=== PATIENT | female | born 1985 | race African-American/Black ===

== ENCOUNTER 2016-10-30 08:01 | Emergency (ER) | payer MEDICAID ==
[~2016-10-30] VITALS: Ht 165.1 cm; Wt 66.0 kg
[~2016-10-30 08:01] MED LIST: ACCUPRIL5 MG; AMOXICILLIN500 MG PO; AMOXIL500 MG OR; BACTRIM DS1 TAB PO; BENADRYL25 M1 OR; CEPHALEXIN500 MG PO; CLARITIN10 M1 PO; CORTISPORIN OTI10 ML AS; DEPO-PROVER150 MG/M1 IM; DOXYCYC MONO100 M1 OR; FLAGYL500 MG PO; FLEXERIL PO; IBUPROFEN600 MG PO; IRON325 M1; LORTAB 5 OR; LORTAB 5/3255 MG; LORTAB 5/3255 MG PO; LORTAB 7.57.5 MG PO; LORTAB/VICOD5 MG/TAB PO; LORTAB5 PO; MACRODANTIN100 MG PO; MOTRIN800 MG PO; MUCINEX600 MG PO; NAPROSYN500 MG PO; NO HOME MEDS; NORCO1 TA1 PO; NORCO1 TA2 PO; PRENATAL FORMUL PO; PRENATAL1 TA1 PO; PROCARDIA10 MG PO; PYRIDIUM200 MG OR; ROBITUSSIN AC10 ML PO; TAM75CAP OR; TORADOL OR; ULTRAM50 M1 PO; ULTRAM50 MG OR; ULTRAM50 MG PO; VICOPROFEN OR; VISTARIL25 MG PO; VITA-NATAL OR; ZITHROMAX250 MG PO; ZOFRAN4 MG/TAB PO
[2016-10-30 08:58] LABS: HEMATOCRIT 42.9 % (37.0-47.0); HEMOGLOBIN 13.8 g/dl (12.0-16.0); IMMATURE GRANULOCYTES 0.2 % (0.0-1.0); MEAN CELL VOLUME 85.8 fL CALC (80.0-100.0); MEAN CORPUSCULAR HGB 27.6 pG CALC (26.0-32.0); MEAN CORPUSCULAR HGB CONC 32.2 g/L CALC (32.0-36.0); NEUT# 3.74 thou/uL (2.00-7.15); RED CELL DISTRI WIDTH 13.6 % (11.5-15.5)
[2016-10-30 09:02] LABS: URINE BILIRUBIN - DIPSTICK NEGATIVE (NEGATIVE); URINE BLOOD DIPSTICK NEGATIVE (NEGATIVE); URINE COLOR YELLOW; URINE GLUCOSE - DIPSTICK NEGATIVE (NEGATIVE); URINE KETONE NEGATIVE (NEGATIVE); URINE PH 6.5 (4.5-8.0); URINE PROTEIN - DIPSTICK TRACE mg/dL (NEG-TRACE); URINE UROBILINOGEN - DIPSTICK 0.2 E.U./dL (0.2)
[2016-10-30 09:04] LABS: URINE CLARITY SLIGHT CLOUDY; URINE LEUK ESTERASE SMALL (NEGATIVE); URINE NITRITE - DIPSTICK POSITIVE (Negative)
[2016-10-30 09:05] LABS: ALBUMIN 4.6 g/dL (3.2-5.0); ALKALINE PHOSPHATASE 58 u/l (38-126); ANION GAP 14 (6-22 (CALC)); BILIRUBIN, TOTAL 0.4 mg/dL (0.0-1.4); BUN 7 mg/dL (7-17); BUN/CREATININE RATIO 8 (12-20 (CALC)); CALCIUM 9.3 mg/dL (8.4-10.2); CARBON DIOXIDE 27 mmol/l (22-30); CHLORIDE 105 mmol/l (95-108); CREATININE 0.9 mg/dL (0.5-1.0); GFR > 60 ML/MIN (>=60 (CALC)); GFR FOR AFR.AMER. > 60 ML/MIN (>=60 (CALC)); GLUCOSE 81 mg/dL (65-105); LIPASE 164 u/l (23-300); POTASSIUM 4.2 mmol/l (3.5-5.1); SGOT/AST 19 u/l (14-36); SGPT/ALT 27 u/l (9-52); SODIUM 142 mmol/l (137-146); TOTAL PROTEIN 7.9 g/dL (6.3-8.2)
[2016-10-30 09:17] LABS: URINE SQUAMOUS EPITHELIAL CELL MODERATE EPI/hpf (0-FEW)
[2016-10-30 09:18] LABS: URINE BACTERIA MODERATE hpf
[2016-10-30] MEDS ORDERED: BACTRIM DS1 TAB PO (10:05)
[2016-10-30 10:09] VITALS: BP 123/62
== END 2016-10-30 10:18 | disposition home or self-care (01) | DRG 690 ==
LOC: ED 08:01
PROVIDERS: Emergency Medicine
DX: N39.0 Urinary tract infection, site not specified (principal); B96.20 Unspecified Escherichia coli [E. coli] as the cause of diseases classified elsewhere; R10.84 Generalized abdominal pain; R11.0 Nausea

== ENCOUNTER 2017-04-08 08:56 | Emergency (ER) | payer MEDICAID ==
[~2017-04-08] VITALS: Ht 165.1 cm; Wt 60.0 kg
[2017-04-08 10:10] LABS: INFLUENZA A NONE DETECTED (NONE DETECT)
[2017-04-08 10:11] LABS: INFLUENZA B NONE DETECTED (NONE DETECT)
[2017-04-08] MEDS ORDERED: ZITHROMAX250 MG PO (10:31)
[2017-04-08 11:00] VITALS: BP 111/71
== END 2017-04-08 11:06 | disposition home or self-care (01) | DRG 153 ==
LOC: ED 08:56
PROVIDERS: Emergency Medicine
DX: J02.9 Acute pharyngitis, unspecified (principal); B34.9 Viral infection, unspecified; R05 Cough; R09.81 Nasal congestion

== ENCOUNTER 2017-04-12 07:10 | Emergency (ER) | payer MEDICAID ==
[~2017-04-12] VITALS: Ht 165.1 cm; Wt 57.0 kg
[2017-04-12 07:57] LABS: INFLUENZA A NONE DETECTED (NONE DETECT); INFLUENZA B NONE DETECTED (NONE DETECT)
[2017-04-12] MEDS ORDERED: DOXYCYC MONO100 M1 PO (07:59)
[2017-04-12 08:09] VITALS: BP 109/67
== END 2017-04-12 08:09 | disposition home or self-care (01) | DRG 153 ==
LOC: ED 07:10
PROVIDERS: Family Medicine
DX: J06.9 Acute upper respiratory infection, unspecified (principal); F17.210 Nicotine dependence, cigarettes, uncomplicated

== ENCOUNTER 2018-04-24 11:41 | Emergency (ER) | payer MEDICAID ==
[~2018-04-24] VITALS: Ht 165.1 cm; Wt 70.0 kg
[~2018-04-24 11:41] MED LIST changes: +DOXYCYC MONO100 M1 PO
[2018-04-24] MEDS ORDERED: BACTRIM DS1 TAB PO (12:17)
[2018-04-24] MEDS ORDERED: KEFLEX500 M1 PO (12:17)
[2018-04-24 12:34] VITALS: BP 135/57
== END 2018-04-24 12:34 | disposition home or self-care (01) ==
LOC: ED 11:41
DX: T19.2XXA Foreign body in vulva and vagina, initial encounter (principal); F17.210 Nicotine dependence, cigarettes, uncomplicated; X58.XXXA Exposure to other specified factors, initial encounter

== ENCOUNTER 2018-10-16 17:44 | Emergency (ER) | payer SELFPAY ==
[~2018-10-16] VITALS: Ht 165.1 cm; Wt 67.8 kg
[~2018-10-16 17:44] MED LIST changes: +KEFLEX500 M1 PO
[2018-10-16 18:41] LABS: IMMATURE GRANULOCYTES 0.2 % (0.0-5.0); MEAN CELL VOLUME 87.4 fL CALC (80.0-100.0); MEAN CORPUSCULAR HGB 27.7 pG CALC (26.0-32.0); MEAN CORPUSCULAR HGB CONC 31.7 g/L CALC (32.0-36.0); NEUT# 2.21 thou/uL (2.00-7.15); RED BLOOD COUNT 4.22 mill/uL (4.20-5.60); RED CELL DISTRI WIDTH 14.3 % (11.5-15.5)
[2018-10-16 18:41] LABS: URINE BILIRUBIN - DIPSTICK NEGATIVE (NEGATIVE); URINE BLOOD DIPSTICK NEGATIVE (NEGATIVE); URINE COLOR YELLOW; URINE GLUCOSE - DIPSTICK NEGATIVE (NEGATIVE); URINE KETONE NEGATIVE (NEGATIVE); URINE LEUK ESTERASE NEGATIVE (NEGATIVE); URINE NITRITE - DIPSTICK NEGATIVE (Negative); URINE PH 6.5 (4.5-8.0); URINE PROTEIN - DIPSTICK TRACE mg/dL (NEG-TRACE); URINE SPECIFIC GRAVITY 1.025
[2018-10-16 18:50] LABS: HEMATOCRIT 36.9 % (37.0-47.0); HEMOGLOBIN 11.7 g/dl (12.0-16.0)
[2018-10-16 19:31] LABS: ALBUMIN 4.1 g/dL (3.2-5.0); ALKALINE PHOSPHATASE 55 u/l (38-126); ANION GAP 12 (6-22 (CALC)); BILIRUBIN, TOTAL 0.3 mg/dL (0.0-1.4); BUN 8 mg/dL (7-17); BUN/CREATININE RATIO 9 (12-20 (CALC)); CARBON DIOXIDE 28 mmol/l (22-30); CHLORIDE 105 mmol/l (95-108); CREATININE 0.9 mg/dL (0.5-1.0); GFR > 60 ML/MIN (>=60 (CALC)); GFR FOR AFR.AMER. > 60 ML/MIN (>=60 (CALC)); LIPASE 137 u/l (23-300); SGOT/AST 20 u/l (14-36); SODIUM 141 mmol/l (137-146); TOTAL PROTEIN 7.2 g/dL (6.3-8.2)
[2018-10-16] MEDS ORDERED: BACTROBAN TOP (21:24)
[2018-10-16] MEDS ORDERED: KEFLEX500 M1 PO (21:24)
[2018-10-16 21:30] VITALS: BP 112/62
== END 2018-10-16 21:40 | disposition home or self-care (01) | DRG 392 ==
LOC: ED 17:44
DX: R10.33 Periumbilical pain (principal); F17.210 Nicotine dependence, cigarettes, uncomplicated
CPT/HCPCS: Q9967

== ENCOUNTER 2018-12-01 09:37 | Emergency (ER) | payer SELFPAY ==
[~2018-12-01] VITALS: Ht 165.1 cm; Wt 75.0 kg
[~2018-12-01 09:37] MED LIST changes: +BACTROBAN TOP
[2018-12-01 11:21] LABS: HEMATOCRIT 37.8 % (37.0-47.0); HEMOGLOBIN 11.9 g/dl (12.0-16.0); IMMATURE GRANULOCYTES 0.2 % (0.0-5.0); MEAN CELL VOLUME 88.9 fL CALC (80.0-100.0); MEAN CORPUSCULAR HGB CONC 31.5 g/L CALC (32.0-36.0); NEUT# 3.15 thou/uL (2.00-7.15); RED BLOOD COUNT 4.25 mill/uL (4.20-5.60); RED CELL DISTRI WIDTH 13.8 % (11.5-15.5)
[2018-12-01 11:24] LABS: URINE BILIRUBIN - DIPSTICK NEGATIVE (NEGATIVE); URINE BLOOD DIPSTICK NEGATIVE (NEGATIVE); URINE COLOR YELLOW; URINE GLUCOSE - DIPSTICK NEGATIVE (NEGATIVE); URINE KETONE NEGATIVE (NEGATIVE); URINE LEUK ESTERASE NEGATIVE (NEGATIVE); URINE NITRITE - DIPSTICK NEGATIVE (Negative); URINE PROTEIN - DIPSTICK NEGATIVE (NEG-TRACE); URINE SPECIFIC GRAVITY 1.015; URINE UROBILINOGEN - DIPSTICK 0.2 E.U./dL (0.2)
[2018-12-01 11:29] LABS: ALKALINE PHOSPHATASE 49 u/l (38-126); ANION GAP 8 (6-22 (CALC)); BILIRUBIN, TOTAL 0.2 mg/dL (0.0-1.4); BUN 7 mg/dL (7-17); BUN/CREATININE RATIO 9 (12-20 (CALC)); CARBON DIOXIDE 27 mmol/l (22-30); CHLORIDE 108 mmol/l (95-108); CREATININE 0.8 mg/dL (0.5-1.0); GFR > 60 ML/MIN (>=60 (CALC)); GFR FOR AFR.AMER. > 60 ML/MIN (>=60 (CALC)); LIPASE 80 u/l (23-300); POTASSIUM 4.2 mmol/l (3.5-5.1); SGOT/AST 21 u/l (14-36); SODIUM 139 mmol/l (137-146); TOTAL PROTEIN 7.2 g/dL (6.3-8.2)
[2018-12-01 12:27] LABS: BARBITURATES NEGATIVE (NEGATIVE); COCAINE NEGATIVE (NEGATIVE); METHADONE NEGATIVE (NEGATIVE); OXCYCODONE NEGATIVE (NEGATIVE); TETRAHYDROCANNABIONOL POSITIVE (NEGATIVE); TRICYLIC ANTIDEPRESSANTS NEGATIVE (NEGATIVE)
[2018-12-01] MEDS ORDERED: DICYCLOMINE HYD10 MG PO (13:31)
[2018-12-01] MEDS ORDERED: ZOFRAN4 MG/TAB PO (13:31)
[2018-12-01] MEDS ORDERED: PROTONIX40 M2 PO (13:31)
[2018-12-01 13:52] VITALS: BP 115/64
== END 2018-12-01 13:58 | disposition home or self-care (01) | DRG 446 ==
LOC: ED 09:37
PROVIDERS: Emergency Medicine
DX: K80.50 Calculus of bile duct without cholangitis or cholecystitis without obstruction (principal); F17.200 Nicotine dependence, unspecified, uncomplicated
CPT/HCPCS: Q9967

== ENCOUNTER 2018-12-03 08:41 | Observation (INO) | payer SELFPAY ==
[~2018-12-03] VITALS: Ht 165.1 cm; Wt 67.3 kg
[~2018-12-03 08:41] MED LIST changes: +DICYCLOMINE HYD10 MG PO; +PROTONIX40 M2 PO
--- NOTE | 2018-12-03 08:50 | NUR ---
AMBULATORY TO ER ROOM 8, TO BED. BEDSIDE TRIAGE DONE
--- NOTE | 2018-12-03 09:02 | NUR ---
PT RESTING LT SIDE LYING HOLDING STOMACH , STATES THERE WAS BLOOD IN TOILET THIS AM AFTER URINATING ADN HAVING LOOSE BM
[2018-12-03 09:07] LABS: HEMATOCRIT 35.7 % (37.0-47.0); HEMOGLOBIN 11.3 g/dl (12.0-16.0); IMMATURE GRANULOCYTES 0.2 % (0.0-5.0); MEAN CELL VOLUME 87.9 fL CALC (80.0-100.0); MEAN CORPUSCULAR HGB 27.8 pG CALC (26.0-32.0); MEAN CORPUSCULAR HGB CONC 31.7 g/L CALC (32.0-36.0); NEUT# 3.28 thou/uL (2.00-7.15); RED BLOOD COUNT 4.06 mill/uL (4.20-5.60); RED CELL DISTRI WIDTH 13.8 % (11.5-15.5)
[2018-12-03 09:46] LABS: ALKALINE PHOSPHATASE 50 u/l (38-126); ANION GAP 8 (6-22 (CALC)); BUN 6 mg/dL (7-17); BUN/CREATININE RATIO 7 (12-20 (CALC)); CARBON DIOXIDE 28 mmol/l (22-30); CHLORIDE 108 mmol/l (95-108); CREATININE 0.8 mg/dL (0.5-1.0); GFR > 60 ML/MIN (>=60 (CALC)); GFR FOR AFR.AMER. > 60 ML/MIN (>=60 (CALC)); SGOT/AST 21 u/l (14-36); SODIUM 139 mmol/l (137-146); TOTAL PROTEIN 7.1 g/dL (6.3-8.2)
[2018-12-03 09:48] LABS: BILIRUBIN, TOTAL 0.4 mg/dL (0.0-1.4)
--- NOTE | 2018-12-03 10:05 | NUR ---
PT SITTING UP IN BED ON TELEPHONE TALKING TO SPOUSE IN NO DISTRESS
--- NOTE | 2018-12-03 11:05 | NUR ---
PT STATES SHE STILL HAS ABD LOGAN, UPDATED, NO NEW ORDERS
[2018-12-03 11:08] LABS: URINE BILIRUBIN - DIPSTICK NEGATIVE (NEGATIVE); URINE BLOOD DIPSTICK NEGATIVE (NEGATIVE); URINE COLOR YELLOW; URINE GLUCOSE - DIPSTICK NEGATIVE (NEGATIVE); URINE KETONE NEGATIVE (NEGATIVE); URINE LEUK ESTERASE NEGATIVE (NEGATIVE); URINE NITRITE - DIPSTICK NEGATIVE (Negative); URINE PROTEIN - DIPSTICK NEGATIVE (NEG-TRACE); URINE UROBILINOGEN - DIPSTICK 0.2 E.U./dL (0.2)
--- NOTE | 2018-12-03 12:05 | NUR ---
PT UPDATED ON POC AND AGREEABLE. DENIES N/V.PAIN2/10
--- NOTE | 2018-12-03 12:33 | NUR ---
PT LEFT VIA WC FOR HIDA SCAN IN NO ACUTE DISTRESS.
--- NOTE | 2018-12-03 13:28 | NUR ---
REPORT CALLED TO BREANNE MUKHERJEE RN. PT TO GO FROM SCAN TO MS
--- NOTE | 2018-12-03 14:26 | NUR ---
PT ARRIVED TO FLOOR VIA WC ACCOMPANIED BY VOLUNTEER. REPORTS SEVERE 10, ON SCALE OF 0-10, ABDOMINAL PAIN. REPORTS NAUSEA. DILAUDID AND ZOFRAN IV ADMINISTERED. PLAN OF CARE DISCUSSED. NPO STATUS REVIEWED. CALL LIGHT REVIEWED AND IN REACH. PT STATES UNDERSTANDING. PT. ALERT AND ORIENTED. AMBULATES W/ STEADY GAIT. LUNGS CLEAR, BOWEL SOUNDS PRESENT. NO OTHER COMPLAINTS.
[2018-12-03 14:40] VITALS: BP 112/75
--- NOTE | 2018-12-03 15:47 | NUR ---
DR. BEST IN TO SEE PT. REGULAR DIET ORDERED NOW, NPO AFTER MIDNIGHT.
--- NOTE | 2018-12-03 16:52 | NUR ---
PT. TALKING ON PHONE, LAUGHING. APPEARS COMFORTABLE.
--- NOTE | 2018-12-03 19:17 | NUR ---
PT RESTING IN BED NO SIGNS OF DISTRESS NOTED, RESP EVEN AND UNLABORED. PT ON CELLPHONE, DISCUSSED NEW IV SITE, PT AGREED. #20G INSERTED TO RFA PT TOLERATED WELL. INITAITED IV FLUIDS. DISCUSSED POC AND NPO AFTER MIDNIGHT, PT AGREED. PT C/O PAIN TO ABD BUT PREFERRED TO WAIT FOR PAIN MEDICATION UNTIL ZOFRAN IS AVAILABLE. ASSESSMENT COMPLETED, CALL LIGHT IN REACH,CONTINUE TO MONITOR.
[2018-12-03 19:29] VITALS: BP 101/62
--- NOTE | 2018-12-04 | NUR ---
PT MEDICATED FOR PAIN, DISCUSSED NPO STATUS, PT VERBALIZED UNDERSTANDING. WATER AND CUPS REMOVED AT THIS TIME. CALL LIGHT IN REACH,CONTINUE TO MONITOR.
[2018-12-04 03:22] VITALS: BP 102/72
--- NOTE | 2018-12-04 06:00 | NUR ---
PT RESTING IN BED WITH EYES CLOSED, EASILY AROUSED TO VERBAL STIMULI. PT C/O PAIN, MEDICATED WITH DILAUDID. CALL LIGHT IN REACH,CONTINUE TO MONITOR.
--- NOTE | 2018-12-04 08:15 | NUR ---
ASSESSMENT DONE. PT IS A&O X3. PT STATED PAIN IN ABD 12/08. MEDICATED PT WITH DILAUDID FOR PAIN. PT NPO. IVF INFUSING WELL. PT MOM IN ROOM. CALL LIGHT IN REACH.
[2018-12-04 08:18] VITALS: BP 100/60
--- NOTE | 2018-12-04 10:55 | NUR ---
DR. BEST AT BEDSIDE TO DISCUSS POC WITH PT AND MOM.
[2018-12-04 11:25] LABS: BARBITURATES NEGATIVE (NEGATIVE); COCAINE POSITIVE (NEGATIVE); METHADONE NEGATIVE (NEGATIVE); OXCYCODONE NEGATIVE (NEGATIVE); TETRAHYDROCANNABIONOL POSITIVE (NEGATIVE); TRICYLIC ANTIDEPRESSANTS NEGATIVE (NEGATIVE)
[2018-12-04 12:27] VITALS: BP 110/67
--- NOTE | 2018-12-04 13:27 | NUR ---
JEREL AND RAQUEL IN ROOM TO SPEAK WITH PT. TO NOTIFY HER THAT SHE CAN'T HAVE SURGERY TODAY DUE TO +DOA.
--- NOTE | 2018-12-04 15:12 | NUR ---
Discharge instructions given. Patient verbalizes understanding of same. Discharged in stable condition via Wheelchair to Home with family. All belongings sent with pt.
== END 2018-12-04 15:12 | disposition home or self-care (01) | DRG 446 ==
LOC: ED 08:41 → ED-I 11:52 → ED 12:05 → MS2 12:06
PROVIDERS: Family Medicine; ADMIT Surgery; ATTEND Surgery
DX: K82.8 Other specified diseases of gallbladder (principal); F14.90 Cocaine use, unspecified, uncomplicated; F17.200 Nicotine dependence, unspecified, uncomplicated
CPT/HCPCS: A9537; G0378; J2805

== ENCOUNTER 2019-02-01 08:23 | Emergency (ER) | payer MEDICAID ==
[~2019-02-01] VITALS: Ht 165.1 cm; Wt 65.0 kg
[2019-02-01 09:16] LABS: HEMATOCRIT 38.6 % (37.0-47.0); IMMATURE GRANULOCYTES 0.4 % (0.0-5.0); MEAN CELL VOLUME 89.4 fL CALC (80.0-100.0); MEAN CORPUSCULAR HGB 27.8 pG CALC (26.0-32.0); MEAN CORPUSCULAR HGB CONC 31.1 g/L CALC (32.0-36.0); NEUT# 2.98 thou/uL (2.00-7.15); RED BLOOD COUNT 4.32 mill/uL (4.20-5.60); RED CELL DISTRI WIDTH 13.4 % (11.5-15.5)
[2019-02-01 09:22] LABS: URINE BILIRUBIN - DIPSTICK NEGATIVE (NEGATIVE); URINE BLOOD DIPSTICK LARGE (NEGATIVE); URINE COLOR YELLOW; URINE GLUCOSE - DIPSTICK NEGATIVE (NEGATIVE); URINE KETONE NEGATIVE (NEGATIVE); URINE LEUK ESTERASE NEGATIVE (NEGATIVE); URINE NITRITE - DIPSTICK NEGATIVE (Negative); URINE PH 6.5 (4.5-8.0); URINE PROTEIN - DIPSTICK NEGATIVE (NEG-TRACE)
[2019-02-01 09:29] LABS: COCAINE POSITIVE (NEGATIVE); TETRAHYDROCANNABIONOL POSITIVE (NEGATIVE)
[2019-02-01 09:30] LABS: BARBITURATES NEGATIVE (NEGATIVE); METHADONE NEGATIVE (NEGATIVE); OXCYCODONE NEGATIVE (NEGATIVE); TRICYLIC ANTIDEPRESSANTS NEGATIVE (NEGATIVE); URINE RBC 0-2 RBC/hpf (0-5); URINE WBC 0-2 WBC/hpf (0-5)
[2019-02-01 09:54] LABS: ALBUMIN 4.1 g/dL (3.2-5.0); ALKALINE PHOSPHATASE 67 u/l (38-126); ANION GAP 10 (6-22 (CALC)); BILIRUBIN, TOTAL 0.3 mg/dL (0.0-1.4); BUN 7 mg/dL (7-17); BUN/CREATININE RATIO 8 (12-20 (CALC)); CARBON DIOXIDE 27 mmol/l (22-30); CHLORIDE 105 mmol/l (95-108); CREATININE 0.9 mg/dL (0.5-1.0); GFR > 60 ML/MIN (>=60 (CALC)); GFR FOR AFR.AMER. > 60 ML/MIN (>=60 (CALC)); POTASSIUM 4.4 mmol/l (3.5-5.1); SGOT/AST 22 u/l (14-36); SODIUM 138 mmol/l (137-146); TOTAL PROTEIN 7.5 g/dL (6.3-8.2)
[2019-02-01] MEDS ORDERED: ONDANSETRON4 MG PO (09:58)
[2019-02-01 10:07] VITALS: BP 114/77
== END 2019-02-01 10:07 | disposition home or self-care (01) ==
LOC: ED 08:23
PROVIDERS: Emergency Medicine
DX: R42 Dizziness and giddiness (principal); F11.90 Opioid use, unspecified, uncomplicated; F14.90 Cocaine use, unspecified, uncomplicated; R00.1 Bradycardia, unspecified; R11.0 Nausea; F17.210 Nicotine dependence, cigarettes, uncomplicated

== ENCOUNTER 2019-04-25 | Emergency (ER) | payer MEDICAID ==
[~2019-04-25] MED LIST changes: +ONDANSETRON4 MG PO
[2019-04-25 12:37] LABS: ALKALINE PHOSPHATASE 47 u/l (38-126); ANION GAP 14 (6-22 (CALC)); BUN 6 mg/dL (7-17); BUN/CREATININE RATIO 8 (12-20 (CALC)); CARBON DIOXIDE 25 mmol/l (22-30); CHLORIDE 104 mmol/l (95-108); CREATININE 0.8 mg/dL (0.5-1.0); GFR > 60 ML/MIN (>=60 (CALC)); GFR FOR AFR.AMER. > 60 ML/MIN (>=60 (CALC)); POTASSIUM 4.2 mmol/l (3.5-5.1); SGOT/AST 25 u/l (14-36); SODIUM 139 mmol/l (137-146); TOTAL PROTEIN 8.8 g/dL (6.3-8.2)
[2019-04-25 12:44] LABS: HEMATOCRIT 40.7 % (37.0-47.0); HEMOGLOBIN 12.7 g/dl (12.0-16.0); IMMATURE GRANULOCYTES 0.1 % (0.0-5.0); MEAN CELL VOLUME 87.7 fL CALC (80.0-100.0); MEAN CORPUSCULAR HGB 27.4 pG CALC (26.0-32.0); MEAN CORPUSCULAR HGB CONC 31.2 g/L CALC (32.0-36.0); NEUT# 3.67 thou/uL (2.00-7.15); RED BLOOD COUNT 4.64 mill/uL (4.20-5.60)
[2019-04-25 12:48] LABS: ALBUMIN 5.1 g/dL (3.2-5.0); BILIRUBIN, TOTAL 0.6 mg/dL (0.0-1.4)
[2019-04-25 13:20] LABS: URINE BILIRUBIN - DIPSTICK NEGATIVE (NEGATIVE); URINE BLOOD DIPSTICK LARGE (NEGATIVE); URINE CLARITY CLEAR; URINE COLOR YELLOW; URINE GLUCOSE - DIPSTICK NEGATIVE (NEGATIVE); URINE KETONE TRACE mg/dL (NEGATIVE); URINE LEUK ESTERASE NEGATIVE (NEGATIVE); URINE LEUK ESTERASE NEGATIVE (Negative); URINE NITRITE - DIPSTICK NEGATIVE (Negative); URINE PH 5.5 (4.5-8.0); URINE PROTEIN - DIPSTICK TRACE mg/dL (NEG-TRACE); URINE SPECIFIC GRAVITY >=1.030
[2019-04-25 13:38] LABS: URINE EPITHELIAL CELLS FEW EPI/hpf (0-FEW); URINE RBC TNTC RBC/hpf (0-5)
== END 2019-04-25 15:01 | disposition home or self-care (01) ==
DX: K56.1 Intussusception (principal); F17.210 Nicotine dependence, cigarettes, uncomplicated
CPT/HCPCS: Q9967

== ENCOUNTER 2019-05-22 | Emergency (ER) | payer MEDICAID ==
[2019-05-22 15:49] LABS: HEMATOCRIT 35.7 % (37.0-47.0); HEMOGLOBIN 11.4 g/dl (12.0-16.0); IMMATURE GRANULOCYTES 0.2 % (0.0-5.0); MEAN CELL VOLUME 87.7 fL CALC (80.0-100.0); MEAN CORPUSCULAR HGB CONC 31.9 g/L CALC (32.0-36.0); NEUT# 3.28 thou/uL (2.00-7.15); RED BLOOD COUNT 4.07 mill/uL (4.20-5.60); RED CELL DISTRI WIDTH 13.9 % (11.5-15.5)
[2019-05-22 15:58] LABS: ALBUMIN 4.5 g/dL (3.2-5.0); ALKALINE PHOSPHATASE 46 u/l (38-126); ANION GAP 8 (6-22 (CALC)); BILIRUBIN, TOTAL 0.5 mg/dL (0.0-1.4); BUN 4 mg/dL (7-17); BUN/CREATININE RATIO 5 (12-20 (CALC)); CARBON DIOXIDE 29 mmol/l (22-30); CHLORIDE 105 mmol/l (95-108); CREATININE 0.8 mg/dL (0.5-1.0); GFR > 60 ML/MIN (>=60 (CALC)); GFR FOR AFR.AMER. > 60 ML/MIN (>=60 (CALC)); LIPASE 133 u/l (23-300); POTASSIUM 3.7 mmol/l (3.5-5.1); SGOT/AST 23 u/l (14-36); SODIUM 139 mmol/l (137-146); TOTAL PROTEIN 7.6 g/dL (6.3-8.2)
[2019-05-22] MEDS ORDERED: ZOFRAN4 MG/TAB PO ×2 (19:07)
== END 2019-05-22 19:20 | disposition home or self-care (01) ==
PROVIDERS: Family Medicine
DX: R10.31 Right lower quadrant pain (principal); R10.11 Right upper quadrant pain; F17.200 Nicotine dependence, unspecified, uncomplicated
CPT/HCPCS: Q9967

== ENCOUNTER 2019-10-28 16:59 | Emergency (ER) | payer MEDICAID ==
[~2019-10-28] VITALS: Ht 165.1 cm; Wt 59.0 kg
[2019-10-28 19:14] LABS: HEMATOCRIT 34.7 % (37.0-47.0); HEMOGLOBIN 10.8 g/dl (12.0-16.0); IMMATURE GRANULOCYTES 0.2 % (0.0-5.0); MEAN CELL VOLUME 88.1 fL CALC (80.0-100.0); MEAN CORPUSCULAR HGB 27.4 pG CALC (26.0-32.0); MEAN CORPUSCULAR HGB CONC 31.1 g/dL CAL (32.0-36.0); NEUT# 2.27 thou/uL (2.00-7.15); RED BLOOD COUNT 3.94 mill/uL (4.20-5.60); RED CELL DISTRI WIDTH 13.2 % (11.5-15.5)
[2019-10-28 19:26] LABS: ALBUMIN 4.2 g/dL (3.2-5.0); ALKALINE PHOSPHATASE 61 u/l (38-126); ANION GAP 9 (6-22 (CALC)); BILIRUBIN, TOTAL 0.3 mg/dL (0.0-1.4); BUN 7 mg/dL (7-17); BUN/CREATININE RATIO 8 (12-20 (CALC)); CARBON DIOXIDE 26 mmol/l (22-30); CHLORIDE 104 mmol/l (95-108); CREATININE 0.8 mg/dL (0.5-1.0); GFR > 60 ML/MIN (>=60 (CALC)); GFR FOR AFR.AMER. > 60 ML/MIN (>=60 (CALC)); POTASSIUM 3.6 mmol/l (3.5-5.1); SGOT/AST 29 u/l (14-36); SODIUM 135 mmol/l (137-146); TOTAL PROTEIN 7.2 g/dL (6.3-8.2)
[2019-10-28 19:48] VITALS: BP 108/63
[2019-10-28] MEDS ORDERED: TORADOL PO ×2 (19:56)
== END 2019-10-28 20:26 | disposition home or self-care (01) ==
LOC: ED 16:59
PROVIDERS: Family Medicine
DX: R07.89 Other chest pain (principal); F17.200 Nicotine dependence, unspecified, uncomplicated; F14.90 Cocaine use, unspecified, uncomplicated; F15.90 Other stimulant use, unspecified, uncomplicated

== ENCOUNTER 2019-11-11 20:27 | Emergency (ER) | payer MEDICAID ==
[~2019-11-11] VITALS: Ht 165.1 cm; Wt 56.0 kg
[~2019-11-11 20:27] MED LIST changes: +TORADOL PO
[2019-11-11 21:05] LABS: URINE BLOOD DIPSTICK NEGATIVE (NEGATIVE); URINE COLOR YELLOW; URINE GLUCOSE - DIPSTICK NEGATIVE (NEGATIVE); URINE KETONE TRACE mg/dL (NEGATIVE); URINE LEUK ESTERASE NEGATIVE (NEGATIVE); URINE NITRITE - DIPSTICK NEGATIVE (Negative); URINE PROTEIN - DIPSTICK TRACE mg/dL (NEG-TRACE); URINE SPECIFIC GRAVITY >=1.030
[2019-11-11 21:06] LABS: URINE BILIRUBIN - DIPSTICK NEGATIVE (NEGATIVE)
[2019-11-11 21:07] LABS: HEMATOCRIT 33.4 % (37.0-47.0); HEMOGLOBIN 10.5 g/dl (12.0-16.0); IMMATURE GRANULOCYTES 0.2 % (0.0-5.0); MEAN CELL VOLUME 86.8 fL CALC (80.0-100.0); MEAN CORPUSCULAR HGB 27.3 pG CALC (26.0-32.0); MEAN CORPUSCULAR HGB CONC 31.4 g/dL CAL (32.0-36.0); NEUT# 2.07 thou/uL (2.00-7.15); RED BLOOD COUNT 3.85 mill/uL (4.20-5.60); RED CELL DISTRI WIDTH 13.1 % (11.5-15.5)
[2019-11-11 21:19] LABS: ALBUMIN 4.2 g/dL (3.2-5.0); ALKALINE PHOSPHATASE 45 u/l (38-126); AMYLASE 77 u/l (30-110); BILIRUBIN, TOTAL 0.4 mg/dL (0.0-1.4); BUN 5 mg/dL (7-17); BUN/CREATININE RATIO 7 (12-20 (CALC)); CARBON DIOXIDE 27 mmol/l (22-30); CHLORIDE 105 mmol/l (95-108); CREATININE 0.7 mg/dL (0.5-1.0); GFR > 60 ML/MIN (>=60 (CALC)); GFR FOR AFR.AMER. > 60 ML/MIN (>=60 (CALC)); LIPASE 212 u/l (23-300); SGOT/AST 27 u/l (14-36); SODIUM 135 mmol/l (137-146); TOTAL PROTEIN 6.9 g/dL (6.3-8.2)
[2019-11-11 21:21] LABS: ANION GAP 6 (6-22 (CALC)); POTASSIUM 2.8 mmol/l (3.5-5.1)
[2019-11-11] MEDS ORDERED: K-DUR/KLOR-CON20 MEQ PO (22:46)
[2019-11-11] MEDS ORDERED: LEVSIN/SL0.125 MG SL (22:46)
[2019-11-11 23:06] VITALS: BP 121/76
== END 2019-11-11 23:06 | disposition home or self-care (01) ==
LOC: ED 20:27
PROVIDERS: Family Medicine
DX: R10.84 Generalized abdominal pain (principal); E87.6 Hypokalemia; E05.90 Thyrotoxicosis, unspecified without thyrotoxic crisis or storm; F17.210 Nicotine dependence, cigarettes, uncomplicated
CPT/HCPCS: Q9967

== ENCOUNTER 2020-05-24 20:19 | Emergency (ER) | payer MEDICAID ==
[~2020-05-24] VITALS: Ht 165.1 cm; Wt 58.0 kg
[~2020-05-24 20:19] MED LIST changes: +K-DUR/KLOR-CON20 MEQ PO; +LEVSIN/SL0.125 MG SL
[2020-05-24 22:25] LABS: HEMATOCRIT 31.9 % (37.0-47.0); HEMOGLOBIN 10.1 g/dl (12.0-16.0); IMMATURE GRANULOCYTES 0.2 % (0.0-5.0); MEAN CELL VOLUME 90.9 fL CALC (80.0-100.0); MEAN CORPUSCULAR HGB 28.8 pG CALC (26.0-32.0); MEAN CORPUSCULAR HGB CONC 31.7 g/dL CAL (32.0-36.0); NEUT# 3.46 thou/uL (2.00-7.15); RED BLOOD COUNT 3.51 mill/uL (4.20-5.60); RED CELL DISTRI WIDTH 13.8 % (11.5-15.5)
[2020-05-24 22:25] LABS: URINE BILIRUBIN - DIPSTICK NEGATIVE (NEGATIVE); URINE BLOOD DIPSTICK NEGATIVE (NEGATIVE); URINE COLOR YELLOW; URINE GLUCOSE - DIPSTICK NEGATIVE (NEGATIVE); URINE KETONE NEGATIVE (NEGATIVE); URINE LEUK ESTERASE TRACE (NEGATIVE); URINE NITRITE - DIPSTICK NEGATIVE (Negative); URINE PROTEIN - DIPSTICK NEGATIVE (NEG-TRACE); URINE UROBILINOGEN - DIPSTICK 0.2 E.U./dL (0.2)
[2020-05-24 22:45] LABS: ALBUMIN 3.6 g/dL (3.2-5.0); ALKALINE PHOSPHATASE 43 u/l (38-126); AMYLASE 201 u/l (30-110); ANION GAP 7 (6-22 (CALC)); BILIRUBIN, TOTAL 0.4 mg/dL (0.0-1.4); BUN 6 mg/dL (7-17); BUN/CREATININE RATIO 7 (12-20 (CALC)); CARBON DIOXIDE 27 mmol/l (22-30); CHLORIDE 105 mmol/l (95-108); CREATININE 0.8 mg/dL (0.5-1.0); GFR > 60 ML/MIN (>=60 (CALC)); GFR FOR AFR.AMER. > 60 ML/MIN (>=60 (CALC)); LIPASE 206 u/l (23-300); POTASSIUM 3.7 mmol/l (3.5-5.1); SGOT/AST 21 u/l (14-36); SODIUM 135 mmol/l (137-146); TOTAL PROTEIN 6.2 g/dL (6.3-8.2)
[2020-05-24] MEDS ORDERED: PHENERGAN25 MG/TAB PO (23:31)
[2020-05-24 23:40] VITALS: BP 117/68
== END 2020-05-24 23:40 | disposition home or self-care (01) ==
LOC: ED 20:19
PROVIDERS: Family Medicine
DX: A08.4 Viral intestinal infection, unspecified (principal); E05.90 Thyrotoxicosis, unspecified without thyrotoxic crisis or storm; F17.200 Nicotine dependence, unspecified, uncomplicated

== ENCOUNTER 2020-05-27 22:26 | Emergency (ER) | payer MEDICAID ==
[~2020-05-27] VITALS: Ht 165.1 cm; Wt 55.0 kg
[~2020-05-27 22:26] MED LIST changes: +PHENERGAN25 MG/TAB PO
[2020-05-28 00:30] VITALS: BP 107/60
== END 2020-05-28 00:30 | disposition home or self-care (01) ==
LOC: ED 22:26
DX: Z20.822 Contact with and (suspected) exposure to COVID-19 (principal); E05.90 Thyrotoxicosis, unspecified without thyrotoxic crisis or storm; F17.200 Nicotine dependence, unspecified, uncomplicated

== ENCOUNTER 2020-08-18 11:06 | Emergency (ER) | payer MEDICAID ==
[~2020-08-18] VITALS: Ht 165.1 cm; Wt 65.0 kg
[2020-08-18 11:58] VITALS: BP 116/73
[2020-08-18 13:06] LABS: MEAN CELL VOLUME 89.6 fL CALC (80.0-100.0); MEAN CORPUSCULAR HGB 28.1 pG CALC (26.0-32.0); MEAN CORPUSCULAR HGB CONC 31.3 g/dL CAL (32.0-36.0); NEUT# 3.61 thou/uL (2.00-7.15); RED BLOOD COUNT 4.31 mill/uL (4.20-5.60); RED CELL DISTRI WIDTH 13.3 % (11.5-15.5)
[2020-08-18 13:09] LABS: HEMATOCRIT 38.6 % (37.0-47.0); HEMOGLOBIN 12.1 g/dl (12.0-16.0)
[2020-08-18 13:20] LABS: ALKALINE PHOSPHATASE 49 u/l (38-126); AMYLASE 133 u/l (30-110); ANION GAP 10 (6-22 (CALC)); BILIRUBIN, TOTAL 0.5 mg/dL (0.0-1.4); BUN 5 mg/dL (7-17); BUN/CREATININE RATIO 6 (12-20 (CALC)); CARBON DIOXIDE 28 mmol/l (22-30); CHLORIDE 105 mmol/l (95-108); CREATININE 0.8 mg/dL (0.5-1.0); GFR > 60 ML/MIN (>=60 (CALC)); GFR FOR AFR.AMER. > 60 ML/MIN (>=60 (CALC)); LIPASE 334 u/l (23-300); POTASSIUM 4.3 mmol/l (3.5-5.1); SGOT/AST 34 u/l (14-36); SODIUM 138 mmol/l (137-146)
[2020-08-18 13:28] LABS: ALBUMIN 4.5 g/dL (3.2-5.0); TOTAL PROTEIN 8.1 g/dL (6.3-8.2)
== END 2020-08-18 13:44 | disposition left against medical advice (07) ==
LOC: ED 11:06
PROVIDERS: Emergency Medicine
DX: R10.2 Pelvic and perineal pain (principal); E05.90 Thyrotoxicosis, unspecified without thyrotoxic crisis or storm; F17.200 Nicotine dependence, unspecified, uncomplicated; Z91.19 Patient's noncompliance with other medical treatment and regimen

== ENCOUNTER 2020-09-09 20:53 | Emergency (ER) | payer MEDICAID ==
[~2020-09-09] VITALS: Ht 165.1 cm; Wt 55.0 kg
[2020-09-09 23:08] LABS: HEMOGLOBIN 10.4 g/dl (12.0-16.0); IMMATURE GRANULOCYTES 0.2 % (0.0-5.0); MEAN CELL VOLUME 88.7 fL CALC (80.0-100.0); MEAN CORPUSCULAR HGB CONC 31.5 g/dL CAL (32.0-36.0); NEUT# 2.46 thou/uL (2.00-7.15); RED BLOOD COUNT 3.72 mill/uL (4.20-5.60); RED CELL DISTRI WIDTH 13.4 % (11.5-15.5)
[2020-09-09 23:23] LABS: ALBUMIN 3.8 g/dL (3.2-5.0); ALKALINE PHOSPHATASE 40 u/l (38-126); AMYLASE 125 u/l (30-110); ANION GAP 9 (6-22 (CALC)); BILIRUBIN, TOTAL 0.3 mg/dL (0.0-1.4); BUN 10 mg/dL (7-17); BUN/CREATININE RATIO 14 (12-20 (CALC)); CARBON DIOXIDE 25 mmol/l (22-30); CHLORIDE 106 mmol/l (95-108); CREATININE 0.7 mg/dL (0.5-1.0); GFR > 60 ML/MIN (>=60 (CALC)); GFR FOR AFR.AMER. > 60 ML/MIN (>=60 (CALC)); LIPASE 85 u/l (23-300); POTASSIUM 4.1 mmol/l (3.5-5.1); SGOT/AST 29 u/l (14-36); SODIUM 135 mmol/l (137-146); TOTAL PROTEIN 6.8 g/dL (6.3-8.2)
[2020-09-10 00:56] LABS: URINE BILIRUBIN - DIPSTICK NEGATIVE (NEGATIVE); URINE COLOR YELLOW; URINE GLUCOSE - DIPSTICK NEGATIVE (NEGATIVE); URINE KETONE Negative (NEGATIVE); URINE SPECIFIC GRAVITY 1.015
[2020-09-10 00:57] LABS: URINE BLOOD DIPSTICK NEGATIVE (NEGATIVE); URINE LEUK ESTERASE NEGATIVE (NEGATIVE); URINE NITRITE - DIPSTICK NEGATIVE (Negative); URINE PROTEIN - DIPSTICK NEGATIVE (NEG-TRACE); URINE UROBILINOGEN - DIPSTICK 0.2 E.U./dL (0.2)
[2020-09-10 03:20] VITALS: BP 100/56
== END 2020-09-10 03:20 | disposition home or self-care (01) ==
LOC: ED 20:53
PROVIDERS: Emergency Medicine
DX: R10.84 Generalized abdominal pain (principal); R11.2 Nausea with vomiting, unspecified; E05.90 Thyrotoxicosis, unspecified without thyrotoxic crisis or storm; F17.210 Nicotine dependence, cigarettes, uncomplicated

== ENCOUNTER 2020-10-14 10:52 | Emergency (ER) | payer MEDICAID ==
[~2020-10-14] VITALS: Ht 165.1 cm; Wt 65.0 kg
[2020-10-14 11:43] LABS: HEMATOCRIT 38.1 % (37.0-47.0); HEMOGLOBIN 12.1 g/dl (12.0-16.0); IMMATURE GRANULOCYTES 0.6 % (0.0-5.0); MEAN CORPUSCULAR HGB 28.3 pG CALC (26.0-32.0); MEAN CORPUSCULAR HGB CONC 31.8 g/dL CAL (32.0-36.0); NEUT# 3.12 thou/uL (2.00-7.15); RED BLOOD COUNT 4.28 mill/uL (4.20-5.60); RED CELL DISTRI WIDTH 13.4 % (11.5-15.5)
[2020-10-14 11:44] LABS: URINE BILIRUBIN - DIPSTICK NEGATIVE (NEGATIVE); URINE BLOOD DIPSTICK LARGE (NEGATIVE); URINE CLARITY TURBID; URINE GLUCOSE - DIPSTICK 100 mg/dL (NEGATIVE); URINE KETONE 15 mg/dL (NEGATIVE); URINE LEUK ESTERASE MODERATE (Negative); URINE NITRITE - DIPSTICK POSITIVE (Negative); URINE PH 6.5 (4.5-8.0); URINE PROTEIN - DIPSTICK >=300 mg/dL (NEG-TRACE); URINE SPECIFIC GRAVITY 1.025
[2020-10-14 11:46] LABS: URINE COLOR BLOODY; URINE RBC TNTC RBC/hpf (0-5); URINE SQUAMOUS EPITHELIAL CELL FEW EPI/hpf (0-FEW)
[2020-10-14 11:57] LABS: ALBUMIN 4.4 g/dL (3.2-5.0); ALKALINE PHOSPHATASE 41 u/l (38-126); ANION GAP 11 (6-22 (CALC)); BILIRUBIN, TOTAL 0.4 mg/dL (0.0-1.4); BUN 7 mg/dL (7-17); BUN/CREATININE RATIO 8 (12-20 (CALC)); CARBON DIOXIDE 26 mmol/l (22-30); CHLORIDE 103 mmol/l (95-108); CREATININE 0.8 mg/dL (0.5-1.0); GFR > 60 ML/MIN (>=60 (CALC)); GFR FOR AFR.AMER. > 60 ML/MIN (>=60 (CALC)); POTASSIUM 3.8 mmol/l (3.5-5.1); SGOT/AST 27 u/l (14-36); SODIUM 137 mmol/l (137-146); TOTAL PROTEIN 8.1 g/dL (6.3-8.2)
[2020-10-14] MEDS ORDERED: ULTRAM50 M1 PO (12:38)
[2020-10-14] MEDS ORDERED: KEFLEX500 MG PO (12:38)
[2020-10-14 13:00] VITALS: BP 110/66
== END 2020-10-14 13:00 | disposition home or self-care (01) ==
LOC: ED 10:52
PROVIDERS: Emergency Medicine
DX: N39.0 Urinary tract infection, site not specified (principal); N83.209 Unspecified ovarian cyst, unspecified side; E05.90 Thyrotoxicosis, unspecified without thyrotoxic crisis or storm; F17.210 Nicotine dependence, cigarettes, uncomplicated

== ENCOUNTER 2020-11-04 16:37 | Emergency (ER) | payer MEDICAID ==
[~2020-11-04 16:37] MED LIST changes: +KEFLEX500 MG PO
[2020-11-04 17:32] LABS: URINE BILIRUBIN - DIPSTICK NEGATIVE (NEGATIVE); URINE BLOOD DIPSTICK NEGATIVE (NEGATIVE); URINE COLOR YELLOW; URINE GLUCOSE - DIPSTICK NEGATIVE (NEGATIVE); URINE KETONE NEGATIVE (NEGATIVE); URINE LEUK ESTERASE NEGATIVE (NEGATIVE); URINE NITRITE - DIPSTICK NEGATIVE (Negative); URINE PROTEIN - DIPSTICK NEGATIVE (NEG-TRACE); URINE UROBILINOGEN - DIPSTICK 0.2 E.U./dL (0.2)
[2020-11-04 17:53] LABS: HEMATOCRIT 32.4 % (37.0-47.0); HEMOGLOBIN 10.4 g/dl (12.0-16.0); IMMATURE GRANULOCYTES 0.1 % (0.0-5.0); MEAN CELL VOLUME 91.3 fL CALC (80.0-100.0); MEAN CORPUSCULAR HGB 29.3 pG CALC (26.0-32.0); MEAN CORPUSCULAR HGB CONC 32.1 g/dL CAL (32.0-36.0); NEUT# 6.51 thou/uL (2.00-7.15); RED BLOOD COUNT 3.55 mill/uL (4.20-5.60); RED CELL DISTRI WIDTH 13.2 % (11.5-15.5)
[2020-11-04 18:00] LABS: ALKALINE PHOSPHATASE 40 u/l (38-126); ANION GAP 12 (6-22 (CALC)); BUN 9 mg/dL (7-17); BUN/CREATININE RATIO 12 (12-20 (CALC)); CARBON DIOXIDE 23 mmol/l (22-30); CHLORIDE 105 mmol/l (95-108); CREATININE 0.8 mg/dL (0.5-1.0); GFR > 60 ML/MIN (>=60 (CALC)); GFR FOR AFR.AMER. > 60 ML/MIN (>=60 (CALC)); LIPASE 122 u/l (23-300); POTASSIUM 3.5 mmol/l (3.5-5.1); SGOT/AST 26 u/l (14-36); SODIUM 136 mmol/l (137-146); TOTAL PROTEIN 7.1 g/dL (6.3-8.2)
[2020-11-04 18:03] LABS: BILIRUBIN, TOTAL 0.2 mg/dL (0.0-1.4)
[2020-11-04] MEDS ORDERED: ONDANSETRON4 MG PO (18:22)
[2020-11-04] MEDS ORDERED: HYOSCYAMINE0.125 M3 PO (18:22)
[2020-11-04 18:25] VITALS: BP 101/58
[2021-02-12] MEDS ORDERED: BACTRIM DS1 TAB PO (12:14)
[2021-02-28] MEDS ORDERED: DEPO-PROVER150 MG/ML IM (08:33)
== END 2020-11-04 18:35 | disposition home or self-care (01) ==
LOC: ED 16:37
PROVIDERS: Family Medicine
DX: R51.9 Headache, unspecified (principal); R10.84 Generalized abdominal pain; N83.202 Unspecified ovarian cyst, left side; N83.201 Unspecified ovarian cyst, right side; E05.90 Thyrotoxicosis, unspecified without thyrotoxic crisis or storm; F17.210 Nicotine dependence, cigarettes, uncomplicated

== ENCOUNTER 2021-01-10 21:22 | Emergency (ER) | payer MEDICAID ==
[~2021-01-10] VITALS: Ht 165.1 cm; Wt 55.0 kg
[~2021-01-10 21:22] MED LIST changes: +HYOSCYAMINE0.125 M3 PO
[2021-01-10 21:30] VITALS: BP 122/68
[2021-01-10] MEDS ORDERED: AMOXICILLIN875 MG PO (22:31)
== END 2021-01-10 22:44 | disposition home or self-care (01) ==
LOC: ED 21:22
DX: J02.9 Acute pharyngitis, unspecified (principal); E05.90 Thyrotoxicosis, unspecified without thyrotoxic crisis or storm; F17.210 Nicotine dependence, cigarettes, uncomplicated; Z20.818 Contact with and (suspected) exposure to other bacterial communicable diseases; Z20.822 Contact with and (suspected) exposure to COVID-19

== ENCOUNTER 2021-03-05 07:58 | Day surgery (SDC) | payer MEDICAID ==
[~2021-03-05 07:58] MED LIST changes: +AMOXICILLIN875 MG PO; +DEPO-PROVER150 MG/ML IM
[2021-03-05] MEDS ORDERED: LORTAB5 PO (11:15)
[2021-03-05 12:30] VITALS: BP 151/99
[2021-03-05] MEDS ORDERED: LORTAB 5/3255 MG PO (13:35)
== END 2021-03-05 13:15 | disposition home or self-care (01) ==
LOC: ORM 07:58
PROVIDERS: ATTEND Surgery
DX: L72.9 Follicular cyst of the skin and subcutaneous tissue, unspecified (principal); L90.5 Scar conditions and fibrosis of skin
CPT/HCPCS: J0131

== ENCOUNTER 2021-04-02 12:12 | Emergency (ER) | payer MEDICAID ==
[~2021-04-02] VITALS: Ht 165.1 cm; Wt 60.0 kg
[2021-04-02 14:22] LABS: HEMATOCRIT 31.7 % (37.0-47.0); MEAN CELL VOLUME 90.1 fL CALC (80.0-100.0); MEAN CORPUSCULAR HGB 28.4 pG CALC (26.0-32.0); MEAN CORPUSCULAR HGB CONC 31.5 g/dL CAL (32.0-36.0); NEUT# 3.96 thou/uL (2.00-7.15); RED BLOOD COUNT 3.52 mill/uL (4.20-5.60); RED CELL DISTRI WIDTH 14.2 % (11.5-15.5)
[2021-04-02 14:44] LABS: ALKALINE PHOSPHATASE 37 u/l (38-126); ANION GAP 7 (6-22 (CALC)); BUN 5 mg/dL (7-17); BUN/CREATININE RATIO 6 (12-20 (CALC)); CARBON DIOXIDE 27 mmol/l (22-30); CHLORIDE 108 mmol/l (95-108); CREATININE 0.8 mg/dL (0.5-1.0); GFR > 60 ML/MIN (>=60 (CALC)); GFR FOR AFR.AMER. > 60 ML/MIN (>=60 (CALC)); POTASSIUM 3.4 mmol/l (3.5-5.1); SODIUM 138 mmol/l (137-146); TOTAL PROTEIN 7.2 g/dL (6.3-8.2)
[2021-04-02 15:05] LABS: BILIRUBIN, TOTAL 0.7 mg/dL (0.0-1.4); SGOT/AST 53 u/l (14-36)
[2021-04-02] MEDS ORDERED: ZPAK PO (15:09)
[2021-04-02 15:12] VITALS: BP 129/71
== END 2021-04-02 15:12 | disposition home or self-care (01) ==
LOC: ED 12:12
PROVIDERS: Emergency Medicine
DX: U07.1 COVID-19 (principal); F17.200 Nicotine dependence, unspecified, uncomplicated

== ENCOUNTER 2021-04-11 08:45 | Emergency (ER) | payer MEDICAID ==
[~2021-04-11 08:45] MED LIST changes: +ZPAK PO
== END 2021-04-11 09:45 | disposition left against medical advice (07) | DRG 951 ==
LOC: ED 08:45 → LWOBS 09:44
DX: Z53.21 Procedure and treatment not carried out due to patient leaving prior to being seen by health care provider (principal)

== ENCOUNTER 2021-06-05 20:09 | Emergency (ER) | payer MEDICAID | END 2021-06-05 21:20 | disposition left against medical advice (07) | DRG 951 | LOC: ED 20:09 → LWOBS 21:20 | DX: Z53.21 Procedure and treatment not carried out due to patient leaving prior to being seen by health care provider (principal) ==

== ENCOUNTER 2021-06-23 01:47 | Emergency (ER) | payer MEDICAID ==
[~2021-06-23] VITALS: Ht 165.1 cm; Wt 55.0 kg
[2021-06-23 02:10] VITALS: BP 103/65
[2021-06-23 02:30] VITALS: BP 111/66
[2021-06-23 02:31] LABS: URINE BILIRUBIN - DIPSTICK NEGATIVE (NEGATIVE); URINE BLOOD DIPSTICK NEGATIVE (NEGATIVE); URINE COLOR YELLOW; URINE GLUCOSE - DIPSTICK NEGATIVE (NEGATIVE); URINE KETONE NEGATIVE (NEGATIVE); URINE LEUK ESTERASE NEGATIVE (NEGATIVE); URINE PROTEIN - DIPSTICK TRACE mg/dL (NEG-TRACE); URINE SPECIFIC GRAVITY >=1.030; URINE UROBILINOGEN - DIPSTICK 0.2 E.U./dL (0.2)
[2021-06-23 02:31] LABS: HEMATOCRIT 37.2 % (37.0-47.0); IMMATURE GRANULOCYTES 0.1 % (0.0-5.0); MEAN CORPUSCULAR HGB 29.3 pG CALC (26.0-32.0); MEAN CORPUSCULAR HGB CONC 32.3 g/dL CAL (32.0-36.0); NEUT# 4.43 thou/uL (2.00-7.15); RED BLOOD COUNT 4.09 mill/uL (4.20-5.60); RED CELL DISTRI WIDTH 13.4 % (11.5-15.5)
[2021-06-23 02:36] LABS: URINE NITRITE - DIPSTICK NEGATIVE (Negative)
[2021-06-23 02:54] LABS: ALBUMIN 4.6 g/dL (3.2-5.0); AMYLASE 129 u/l (30-110); ANION GAP 8 (6-22 (CALC)); BUN 10 mg/dL (7-17); BUN/CREATININE RATIO 12 (12-20 (CALC)); CARBON DIOXIDE 28 mmol/l (22-30); CHLORIDE 106 mmol/l (95-108); CREATININE 0.9 mg/dL (0.5-1.0); GFR > 60 ML/MIN (>=60 (CALC)); GFR FOR AFR.AMER. > 60 ML/MIN (>=60 (CALC)); LIPASE 237 u/l (23-300); POTASSIUM 3.9 mmol/l (3.5-5.1); SGOT/AST 28 u/l (14-36); SODIUM 138 mmol/l (137-146); TOTAL PROTEIN 7.7 g/dL (6.3-8.2)
[2021-06-23 03:00] VITALS: BP 104/73
[2021-06-23 03:03] LABS: ALKALINE PHOSPHATASE 67 u/l (38-126); BILIRUBIN, TOTAL 0.3 mg/dL (0.0-1.4)
[2021-06-23 03:24] LABS: TSH, 3RD GENERATION 1.28 uIU/mL (0.47 - 4.68)
[2021-06-23 03:30] VITALS: BP 113/79
[2021-06-23 04:00] VITALS: BP 104/76
[2021-06-23] MEDS ORDERED: DICYCLOMINE10 MG PO (05:30)
[2021-06-23 05:39] VITALS: BP 104/76
== END 2021-06-23 05:40 | disposition home or self-care (01) ==
LOC: ED 01:47
PROVIDERS: Family Medicine
DX: R10.84 Generalized abdominal pain (principal); F17.200 Nicotine dependence, unspecified, uncomplicated
CPT/HCPCS: Q9967

== ENCOUNTER 2021-07-18 17:54 | Emergency (ER) | payer MEDICAID ==
[~2021-07-18 17:54] MED LIST changes: +DICYCLOMINE10 MG PO
== END 2021-07-18 19:00 | disposition left against medical advice (07) | DRG 951 ==
LOC: ED 17:54 → LWOBS 19:00
DX: Z53.21 Procedure and treatment not carried out due to patient leaving prior to being seen by health care provider (principal)

== ENCOUNTER 2021-08-13 10:14 | Emergency (ER) | payer MEDICAID ==
[2021-08-13] VITALS (8 sets, daily range): BP systolic 80–112; BP diastolic 31–72
[~2021-08-13] VITALS: Ht 165.1 cm; Wt 55.7 kg
[2021-08-13 10:41] LABS: URINE BILIRUBIN - DIPSTICK NEGATIVE (NEGATIVE); URINE BLOOD DIPSTICK NEGATIVE (NEGATIVE); URINE COLOR YELLOW; URINE GLUCOSE - DIPSTICK NEGATIVE (NEGATIVE); URINE KETONE NEGATIVE (NEGATIVE); URINE LEUK ESTERASE NEGATIVE (NEGATIVE); URINE NITRITE - DIPSTICK NEGATIVE (Negative); URINE PROTEIN - DIPSTICK NEGATIVE (NEG-TRACE); URINE SPECIFIC GRAVITY 1.015; URINE UROBILINOGEN - DIPSTICK 0.2 E.U./dL (0.2)
[2021-08-13 11:02] LABS: HEMATOCRIT 35.1 % (37.0-47.0); HEMOGLOBIN 11.1 g/dl (12.0-16.0); MEAN CELL VOLUME 92.4 fL CALC (80.0-100.0); MEAN CORPUSCULAR HGB 29.2 pG CALC (26.0-32.0); MEAN CORPUSCULAR HGB CONC 31.6 g/dL CAL (32.0-36.0); NEUT# 2.64 thou/uL (2.00-7.15); RED BLOOD COUNT 3.8 mill/uL (4.20-5.60); RED CELL DISTRI WIDTH 12.9 % (11.5-15.5)
[2021-08-13 11:16] LABS: ALKALINE PHOSPHATASE 51 u/l (38-126); ANION GAP 9 (6-22 (CALC)); BUN 6 mg/dL (7-17); BUN/CREATININE RATIO 8 (12-20 (CALC)); CARBON DIOXIDE 24 mmol/l (22-30); CHLORIDE 109 mmol/l (95-108); CREATININE 0.7 mg/dL (0.5-1.0); GFR > 60 ML/MIN (>=60 (CALC)); GFR FOR AFR.AMER. > 60 ML/MIN (>=60 (CALC)); LIPASE 122 u/l (23-300); POTASSIUM 3.7 mmol/l (3.5-5.1); SGOT/AST 29 u/l (14-36); SODIUM 138 mmol/l (137-146)
[2021-08-13 11:18] LABS: ALBUMIN 3.5 g/dL (3.2-5.0); TOTAL PROTEIN 6.1 g/dL (6.3-8.2)
[2021-08-13] MEDS ORDERED: METRONIDAZOLE500 MG PO (11:53)
[2021-08-13] MEDS ORDERED: DIFLUCAN150 MG PO (11:53)
== END 2021-08-13 12:10 | disposition home or self-care (01) ==
LOC: ED 10:14
PROVIDERS: Family Medicine
DX: N76.0 Acute vaginitis (principal); B37.3 Candidiasis of vulva and vagina; D25.1 Intramural leiomyoma of uterus; F17.210 Nicotine dependence, cigarettes, uncomplicated

== ENCOUNTER 2021-09-11 17:14 | Emergency (ER) | payer MEDICAID ==
[~2021-09-11] VITALS: Ht 165.1 cm; Wt 59.3 kg
[~2021-09-11 17:14] MED LIST changes: +DIFLUCAN150 MG PO; +METRONIDAZOLE500 MG PO
[2021-09-11 17:58] VITALS: BP 108/67
[2021-09-11 18:00] VITALS: BP 92/57
[2021-09-11 18:00] LABS: HEMATOCRIT 37.2 % (37.0-47.0); HEMOGLOBIN 11.8 g/dl (12.0-16.0); IMMATURE GRANULOCYTES 0.2 % (0.0-5.0); MEAN CELL VOLUME 93.7 fL CALC (80.0-100.0); MEAN CORPUSCULAR HGB 29.7 pG CALC (26.0-32.0); MEAN CORPUSCULAR HGB CONC 31.7 g/dL CAL (32.0-36.0); NEUT# 3.46 thou/uL (2.00-7.15); RED BLOOD COUNT 3.97 mill/uL (4.20-5.60); RED CELL DISTRI WIDTH 12.9 % (11.5-15.5)
[2021-09-11 18:04] LABS: INTERNATIONAL NORMALIZED RATIO 0.9 RATIO (0.7-1.3); PROTHROMBIN TIME 9.9 SECONDS (9.0-12.5)
[2021-09-11 18:06] LABS: ALBUMIN 2.8 g/dL (3.2-5.0); ALKALINE PHOSPHATASE 42 u/l (38-126); ANION GAP 5 (6-22 (CALC)); BUN 3 mg/dL (7-17); BUN/CREATININE RATIO 3 (12-20 (CALC)); CARBON DIOXIDE 25 mmol/l (22-30); CHLORIDE 110 mmol/l (95-108); CREATININE 0.9 mg/dL (0.5-1.0); GFR FOR AFR.AMER. > 60 ML/MIN (>=60 (CALC)); GFR OTHER RACES > 60 ML/MIN (>=60 (CALC)); POTASSIUM 3.5 mmol/l (3.5-5.1); SGOT/AST 30 u/l (14-36); SODIUM 137 mmol/l (137-146); TOTAL PROTEIN 5.1 g/dL (6.3-8.2)
[2021-09-11 18:13] LABS: BILIRUBIN, TOTAL 0.2 mg/dL (0.0-1.4)
[2021-09-11 18:15] VITALS: BP 93/60
[2021-09-11 18:31] VITALS: BP 99/66
[2021-09-11 18:44] VITALS: BP 133/81
[2021-09-11 19:08] VITALS: BP 102/67
== END 2021-09-11 19:08 | disposition short-term general hospital (02) ==
LOC: ED 17:14
PROVIDERS: Family Medicine
DX: I63.9 Cerebral infarction, unspecified (principal)
CPT/HCPCS: J3101; Q9967

== ENCOUNTER 2021-09-30 11:12 | Emergency (ER) | payer OTHER, MEDICAID ==
[~2021-09-30] VITALS: Ht 165.1 cm; Wt 58.0 kg
[2021-09-30 11:26] VITALS: BP 108/61
[2021-09-30 11:30] VITALS: BP 95/60
[2021-09-30 11:35] VITALS: BP 95/60
[2021-09-30] MEDS ORDERED: ATORVASTATIN CA40 MG PO (12:04)
[2021-09-30 12:12] LABS: URINE BILIRUBIN - DIPSTICK NEGATIVE (NEGATIVE); URINE BLOOD DIPSTICK NEGATIVE (NEGATIVE); URINE COLOR YELLOW; URINE GLUCOSE - DIPSTICK NEGATIVE (NEGATIVE); URINE KETONE NEGATIVE (NEGATIVE); URINE LEUK ESTERASE NEGATIVE (NEGATIVE); URINE PROTEIN - DIPSTICK NEGATIVE (NEG-TRACE); URINE SPECIFIC GRAVITY 1.025; URINE UROBILINOGEN - DIPSTICK 0.2 E.U./dL (0.2)
[2021-09-30 12:15] LABS: URINE NITRITE - DIPSTICK NEGATIVE (Negative)
[2021-09-30] MEDS ORDERED: NAPROXEN500 MG PO (14:14)
[2021-09-30] MEDS ORDERED: CYCLOBENZAPRINE10 MG PO (14:14)
== END 2021-09-30 14:15 | disposition home or self-care (01) | DRG 552 ==
LOC: ED 11:12
PROVIDERS: Emergency Medicine
DX: S33.5XXA Sprain of ligaments of lumbar spine, initial encounter (principal); F17.210 Nicotine dependence, cigarettes, uncomplicated; V49.40XA Driver injured in collision with unspecified motor vehicles in traffic accident, initial encounter; Z86.73 Personal history of transient ischemic attack (TIA), and cerebral infarction without residual deficits

== ENCOUNTER 2021-10-26 10:15 | Emergency (ER) | payer MEDICAID ==
[~2021-10-26] VITALS: Ht 165.1 cm; Wt 57.0 kg
[~2021-10-26 10:15] MED LIST changes: +ATORVASTATIN CA40 MG PO; +CYCLOBENZAPRINE10 MG PO; +NAPROXEN500 MG PO
[2021-10-26 11:04] LABS: HEMATOCRIT 36.5 % (37.0-47.0); HEMOGLOBIN 11.4 g/dl (12.0-16.0); IMMATURE GRANULOCYTES 0.2 % (0.0-5.0); MEAN CELL VOLUME 93.1 fL CALC (80.0-100.0); MEAN CORPUSCULAR HGB 29.1 pG CALC (26.0-32.0); MEAN CORPUSCULAR HGB CONC 31.2 g/dL CAL (32.0-36.0); NEUT# 2.75 thou/uL (2.00-7.15); RED BLOOD COUNT 3.92 mill/uL (4.20-5.60); RED CELL DISTRI WIDTH 12.6 % (11.5-15.5)
[2021-10-26 11:16] LABS: ALKALINE PHOSPHATASE 40 u/l (38-126); BILIRUBIN, TOTAL 0.2 mg/dL (0.0-1.4); BUN 5 mg/dL (7-17); BUN/CREATININE RATIO 6 (12-20 (CALC)); CHLORIDE 104 mmol/l (95-108); CREATININE 0.9 mg/dL (0.5-1.0); GFR FOR AFR.AMER. > 60 ML/MIN (>=60 (CALC)); GFR OTHER RACES > 60 ML/MIN (>=60 (CALC)); POTASSIUM 3.5 mmol/l (3.5-5.1); SGOT/AST 22 u/l (14-36); SODIUM 138 mmol/l (137-146)
[2021-10-26 11:17] LABS: ALBUMIN 4.1 g/dL (3.2-5.0); ANION GAP 7 (6-22 (CALC)); CARBON DIOXIDE 31 mmol/l (22-30)
[2021-10-26 13:55] VITALS: BP 101/67
== END 2021-10-26 13:56 | disposition home or self-care (01) ==
LOC: ED 10:15
PROVIDERS: Family Medicine
DX: R51.9 Headache, unspecified (principal); R07.89 Other chest pain; E78.5 Hyperlipidemia, unspecified; Z86.73 Personal history of transient ischemic attack (TIA), and cerebral infarction without residual deficits; F17.200 Nicotine dependence, unspecified, uncomplicated

== ENCOUNTER 2022-01-23 15:31 | Emergency (ER) | payer MEDICAID ==
[2022-01-23] VITALS (11 sets, daily range): BP systolic 90–112; BP diastolic 54–82
[~2022-01-23] VITALS: Ht 165.1 cm; Wt 54.1 kg
[2022-01-23 15:56] LABS: HEMATOCRIT 37.2 % (37.0-47.0); MEAN CELL VOLUME 90.1 fL CALC (80.0-100.0); MEAN CORPUSCULAR HGB 29.1 pG CALC (26.0-32.0); MEAN CORPUSCULAR HGB CONC 32.3 g/dL CAL (32.0-36.0); NEUT# 2.16 thou/uL (2.00-7.15); RED BLOOD COUNT 4.13 mill/uL (4.20-5.60); RED CELL DISTRI WIDTH 12.6 % (11.5-15.5)
[2022-01-23 16:11] LABS: ALBUMIN 4.4 g/dL (3.2-5.0); ALKALINE PHOSPHATASE 60 u/l (38-126); ANION GAP 12 (6-22 (CALC)); BILIRUBIN, TOTAL 0.2 mg/dL (0.0-1.4); BUN 6 mg/dL (7-17); BUN/CREATININE RATIO 6 (12-20 (CALC)); CARBON DIOXIDE 25 mmol/l (22-30); CHLORIDE 105 mmol/l (95-108); CREATININE 0.9 mg/dL (0.5-1.0); GFR FOR AFR.AMER. > 60 ML/MIN (>=60 (CALC)); GFR OTHER RACES > 60 ML/MIN (>=60 (CALC)); POTASSIUM 3.9 mmol/l (3.5-5.1); SGOT/AST 26 u/l (14-36); SODIUM 139 mmol/l (137-146); TOTAL PROTEIN 7.5 g/dL (6.3-8.2)
== END 2022-01-23 18:35 | disposition home or self-care (01) ==
LOC: ED 15:31
PROVIDERS: Emergency Medicine
DX: R20.2 Paresthesia of skin (principal); F17.210 Nicotine dependence, cigarettes, uncomplicated; Z86.73 Personal history of transient ischemic attack (TIA), and cerebral infarction without residual deficits
CPT/HCPCS: Q9967

== ENCOUNTER 2022-06-15 08:28 | Emergency (ER) | payer MEDICAID ==
[2022-06-15] VITALS (8 sets, daily range): BP systolic 102–132; BP diastolic 59–86
[~2022-06-15] VITALS: Ht 165.1 cm; Wt 58.0 kg
[2022-06-15 09:29] LABS: BASO% 0.8 % (0-3); EOS% 1.5 % (0-8); HEMATOCRIT 39.6 % (37.0-47.0); HEMOGLOBIN 12.4 g/dl (12.0-16.0); LYMPH% 34.5 % (15-41); MEAN CELL VOLUME 90.4 fL CALC (80.0-100.0); MEAN CORPUSCULAR HGB 28.3 pG CALC (26.0-32.0); MEAN CORPUSCULAR HGB CONC 31.3 g/dL CAL (32.0-36.0); NEUT# 2.05 thou/uL (2.00-7.15); NEUT% 51.2 % (42-76); RED BLOOD COUNT 4.38 mill/uL (4.20-5.60); RED CELL DISTRI WIDTH 12.7 % (11.5-15.5)
[2022-06-15 09:36] LABS: ALBUMIN 4.3 g/dL (3.2-5.0); ALKALINE PHOSPHATASE 60 u/l (38-126); AMYLASE 113 u/l (30-110); ANION GAP 9 (6-22 (CALC)); BUN 7 mg/dL (7-17); BUN/CREATININE RATIO 10 (12-20 (CALC)); CARBON DIOXIDE 26 mmol/l (22-30); CHLORIDE 107 mmol/l (95-108); CREATININE 0.7 mg/dL (0.5-1.0); GFR FOR AFR.AMER. > 60 ML/MIN (>=60 (CALC)); GFR OTHER RACES > 60 ML/MIN (>=60 (CALC)); LIPASE 134 u/l (23-300); POTASSIUM 3.8 mmol/l (3.5-5.1); SGOT/AST 28 u/l (14-36); SODIUM 138 mmol/l (137-146); TOTAL PROTEIN 7.4 g/dL (6.3-8.2)
[2022-06-15 09:51] LABS: BILIRUBIN, TOTAL 0.1 mg/dL (0.02-1.3)
[2022-06-15 10:24] LABS: URINE BILIRUBIN - DIPSTICK NEGATIVE (NEGATIVE); URINE BLOOD DIPSTICK NEGATIVE (NEGATIVE); URINE COLOR YELLOW; URINE GLUCOSE - DIPSTICK NEGATIVE (NEGATIVE); URINE KETONE NEGATIVE (NEGATIVE); URINE LEUK ESTERASE NEGATIVE (NEGATIVE); URINE PROTEIN - DIPSTICK NEGATIVE (NEG-TRACE)
[2022-06-15 10:25] LABS: URINE NITRITE - DIPSTICK NEGATIVE (Negative)
== END 2022-06-15 12:02 | disposition left against medical advice (07) ==
LOC: ED 08:28
PROVIDERS: Family Medicine
DX: R10.11 Right upper quadrant pain (principal); F17.200 Nicotine dependence, unspecified, uncomplicated; Z86.73 Personal history of transient ischemic attack (TIA), and cerebral infarction without residual deficits; Z53.29 Procedure and treatment not carried out because of patient's decision for other reasons

== ENCOUNTER 2022-11-04 08:27 | Emergency (ER) | payer MEDICAID ==
[~2022-11-04] VITALS: Ht 165.1 cm; Wt 94.8 kg
[2022-11-04] VITALS (16 sets, daily range): BP systolic 87–125; BP diastolic 40–79
[2022-11-04 09:02] LABS: BASO% 0.7 % (0-3); EOS% 1.5 % (0-8); HEMATOCRIT 36.3 % (37.0-47.0); HEMOGLOBIN 11.3 g/dl (12.0-16.0); IMMATURE GRANULOCYTES 0.2 % (0.0-5.0); LYMPH% 4.2 % (15-41); MEAN CELL VOLUME 93.6 fL CALC (80.0-100.0); MEAN CORPUSCULAR HGB 29.1 pG CALC (26.0-32.0); MEAN CORPUSCULAR HGB CONC 31.1 g/dL CAL (32.0-36.0); MONO% 12.4 % (2-13); NEUT# 3.26 thou/uL (2.00-7.15); RED BLOOD COUNT 3.88 mill/uL (4.20-5.60)
[2022-11-04 09:02] LABS: URINE BILIRUBIN - DIPSTICK NEGATIVE (NEGATIVE); URINE BLOOD DIPSTICK NEGATIVE (NEGATIVE); URINE COLOR YELLOW; URINE GLUCOSE - DIPSTICK NEGATIVE (NEGATIVE); URINE KETONE TRACE mg/dL (NEGATIVE); URINE LEUK ESTERASE NEGATIVE (NEGATIVE); URINE NITRITE - DIPSTICK NEGATIVE (Negative); URINE PH 5.5 (4.5-8.0); URINE PROTEIN - DIPSTICK NEGATIVE (NEG-TRACE); URINE UROBILINOGEN - DIPSTICK 0.2 E.U./dL (0.2)
[2022-11-04 09:15] LABS: ALBUMIN 3.5 g/dL (3.2-5.0); ALKALINE PHOSPHATASE 39 u/l (38-126); ANION GAP 7 (6-22 (CALC)); BILIRUBIN, TOTAL 0.3 mg/dL (0.02-1.3); BUN 5 mg/dL (7-17); BUN/CREATININE RATIO 6 (12-20 (CALC)); CARBON DIOXIDE 29 mmol/l (22-30); CHLORIDE 103 mmol/l (95-108); CREATININE 0.9 mg/dL (0.5-1.0); GFR FOR AFR.AMER. > 60 ML/MIN (>=60 (CALC)); GFR OTHER RACES > 60 ML/MIN (>=60 (CALC)); POTASSIUM 3.5 mmol/l (3.5-5.1); SGOT/AST 25 u/l (14-36); SODIUM 134 mmol/l (137-146); TOTAL PROTEIN 6.3 g/dL (6.3-8.2)
== END 2022-11-04 12:50 | disposition home or self-care (01) ==
LOC: ED 08:27
PROVIDERS: Family Medicine
DX: U07.1 COVID-19 (principal); R53.1 Weakness; F17.200 Nicotine dependence, unspecified, uncomplicated; Z86.73 Personal history of transient ischemic attack (TIA), and cerebral infarction without residual deficits

== ENCOUNTER 2024-01-07 15:24 | Emergency (ER) | payer MEDICAID ==
[~2024-01-07] VITALS: Ht 165.1 cm; Wt 54.4 kg
[2024-01-07] VITALS (9 sets, daily range): BP systolic 90–103; BP diastolic 53–74
[~2024-01-07 15:24] MED LIST changes: +BAYER ASPIRIN E81 MG PO
[2024-01-07 16:30] LABS: BASO% 0.5 % (0-3); EOS% 1.5 % (0-8); HEMATOCRIT 34.5 % (37.0-47.0); HEMOGLOBIN 10.6 g/dl (12.0-16.0); IMMATURE GRANULOCYTES 0.2 % (0.0-5.0); LYMPH% 23.6 % (15-41); MEAN CELL VOLUME 93.5 fL CALC (80.0-100.0); MEAN CORPUSCULAR HGB 28.7 pG CALC (26.0-32.0); MEAN CORPUSCULAR HGB CONC 30.7 g/dL CAL (32.0-36.0); MONO% 9.4 % (2-13); NEUT# 3.92 thou/uL (2.00-7.15); NEUT% 64.8 % (42-76); RED BLOOD COUNT 3.69 mill/uL (4.20-5.60); RED CELL DISTRI WIDTH 12.9 % (11.5-15.5)
[2024-01-07] MEDS ORDERED: KETOROLAC TROMETHAMINE 30 MG/ML SDV IV ONE (16:30)
[2024-01-07] MEDS ORDERED: ORPHENADRINE CITRATE 30 MG/ML AMP IV ONE (16:30)
[2024-01-07 16:44] LABS: ALBUMIN 3.9 g/dL (3.2-5.0); ALKALINE PHOSPHATASE 39 u/l (38-126); ANION GAP 4 (6-22 (CALC)); BUN 3 mg/dL (7-17); BUN/CREATININE RATIO 4 (12-20 (CALC)); CARBON DIOXIDE 29 mmol/l (22-30); CHLORIDE 111 mmol/l (95-108); CREATININE 0.8 mg/dL (0.5-1.0); ESTIMATED GFR 97 ML/MIN (>=90 (CALC)); POTASSIUM 3.5 mmol/l (3.5-5.1); SGOT/AST 20 u/l (14-36); SODIUM 141 mmol/l (137-146); TOTAL PROTEIN 6.7 g/dL (6.3-8.2)
[2024-01-07 16:52] LABS: BILIRUBIN, TOTAL 0.4 mg/dL (0.02-1.3)
[2024-01-07] MEDS ORDERED: NAPROXEN500 MG PO (17:56)
[2024-01-07] MEDS ORDERED: METHOCARBAMOL500 MG PO (17:56)
== END 2024-01-07 18:06 | disposition home or self-care (01) ==
LOC: ED 15:24
PROVIDERS: Nurse Practitioner
DX: R07.89 Other chest pain (principal); Z86.73 Personal history of transient ischemic attack (TIA), and cerebral infarction without residual deficits; F17.210 Nicotine dependence, cigarettes, uncomplicated

== ENCOUNTER 2024-03-21 07:41 | Emergency (ER) | payer MEDICAID ==
[~2024-03-21] VITALS: Ht 165.1 cm; Wt 55.7 kg
[2024-03-21] VITALS (7 sets, daily range): BP systolic 89–111; BP diastolic 51–73
[~2024-03-21 07:41] MED LIST changes: +FIORICET PO; +METHOCARBAMOL500 MG PO
[2024-03-21 08:09] LABS: URINE BLOOD DIPSTICK Large (NEGATIVE); URINE GLUCOSE - DIPSTICK Negative (NEGATIVE); URINE KETONE Trace mg/dL (NEGATIVE); URINE LEUK ESTERASE Trace (NEGATIVE); URINE NITRITE - DIPSTICK Negative (Negative); URINE PROTEIN - DIPSTICK 100 mg/dL (NEG-TRACE); URINE UROBILINOGEN - DIPSTICK 0.2 E.U./dL (0.2)
[2024-03-21 08:11] LABS: URINE COLOR Bloody; URINE EPITHELIAL CELLS FEW EPI/hpf (0-FEW); URINE RBC TNTC RBC/hpf (0-5); URINE WBC 0-2 WBC/hpf (0-5)
[2024-03-21] MEDS ORDERED: IBUPROFEN 600 MG/TAB PO ONE (08:25)
[2024-03-21] MEDS ORDERED: IBUPROFEN600 MG PO (10:19)
== END 2024-03-21 10:40 | disposition home or self-care (01) ==
LOC: ED 07:41
PROVIDERS: Emergency Medicine
DX: D25.9 Leiomyoma of uterus, unspecified (principal); F17.210 Nicotine dependence, cigarettes, uncomplicated; Z86.73 Personal history of transient ischemic attack (TIA), and cerebral infarction without residual deficits

== ENCOUNTER 2024-06-04 23:59 | Emergency (ER) | payer SELFPAY ==
[~2024-06-04] VITALS: Ht 165.1 cm; Wt 60.0 kg
[2024-06-05] MEDS ORDERED: SUDAFED 12HR120 MG PO (00:47)
[2024-06-05 00:59] VITALS: BP 128/79
== END 2024-06-05 00:59 | disposition home or self-care (01) | DRG 153 ==
LOC: ED 23:59
DX: J06.9 Acute upper respiratory infection, unspecified (principal); I10 Essential (primary) hypertension; E78.5 Hyperlipidemia, unspecified; F17.210 Nicotine dependence, cigarettes, uncomplicated; T50.916A Underdosing of multiple unspecified drugs, medicaments and biological substances, initial encounter; Z91.128 Patient's intentional underdosing of medication regimen for other reason; Z86.73 Personal history of transient ischemic attack (TIA), and cerebral infarction without residual deficits; Z20.822 Contact with and (suspected) exposure to COVID-19